=== PATIENT | female | born 1940 | race Caucasian/White ===

== ENCOUNTER 2024-05-15 08:22 | Observation (INO) ==
--- NOTE | 2024-04-01 11:25 | PAT Medication Instructions ---
Medication Instructions Date of Service April 01, 2024 Home Medications albuterol sulfate 90 mcg/actuation aerosol inhaler 2 puff inhalation Q6H PRN amitriptyline 10 mg tablet 10 mg PO HS ascorbic acid (vitamin C) 500 mg tablet (Vitamin C) 500 mg PO QAM calcium carbonate (Calcium 600) 600 mg PO QAM escitalopram oxalate 10 mg tablet 10 mg PO QAM furosemide 20 mg tablet 20 mg PO QAM gabapentin 300 mg capsule 300 - 900 mg PO UD losartan 100 mg tablet 100 mg PO QAM jsaxsqkthikk-ydsvzqnb-urbecd tablet 1 tab PO QAM omeprazole 20 mg tablet,delayed release 20 mg PO QAM simvastatin 40 mg tablet 40 mg PO HS tiotropium 2.5 mcg-olodaterol 2.5 mcg/actuation mist for inhalation (Stiolto Respimat) 2 puff inhalation QAM vitamins A,C,Y-oufv-vmeoii 2,148 mcg-113 mg-45 mg-17.4 mg tablet (PreserVision AREDS) 1 tab PO QAM Continue as directed gabapentin 300 mg capsule 300 - 900 mg PO UD STOP taking 2 weeks before surgery (or as soon as possible if surgery is within 2 weeks) vitamins A,C,M-zvaq-uqwqlg 2,148 mcg-113 mg-45 mg-17.4 mg tablet (PreserVision AREDS) 1 tab PO QAM DO NOT take the morning of surgery ascorbic acid (vitamin C) 500 mg tablet (Vitamin C) 500 mg PO QAM calcium carbonate (Calcium 600) 600 mg PO QAM furosemide 20 mg tablet 20 mg PO QAM losartan 100 mg tablet 100 mg PO QAM extibwvucvev-vdalktlk-nqiqkt tablet 1 tab PO QAM Take morning of surgery With a small sip of water, OTHERWISE NOTHING TO EAT OR DRINK AFTER MIDNIGHT: albuterol sulfate 90 mcg/actuation aerosol inhaler 2 puff inhalation Q6H PRN(use if needed; please bring with you to hospital day of surgery if possible) escitalopram oxalate 10 mg tablet 10 mg PO QAM omeprazole 20 mg tablet,delayed release 20 mg PO QAM tiotropium 2.5 mcg-olodaterol 2.5 mcg/actuation mist for inhalation (Stiolto Respimat) 2 puff inhalation QAM Take evening before surgery albuterol sulfate 90 mcg/actuation aerosol inhaler 2 puff inhalation Q6H PRN(if needed) amitriptyline 10 mg tablet 10 mg PO HS simvastatin 40 mg tablet 40 mg PO HS Other Notes If you have any questions please call us at [phone] or [phone] or [phone] or [phone]
--- NOTE | 2024-04-08 14:01 | Anesthesiology Consultation ---
Date of Service April 08, 2024 Assessment & Plan (1) Encounter for pre-operative examination: - patient states Dr. Lew advised her he plans to contact pain management regarding if she is a candidate for neuraxial anesthesia given her lumbar history. Awaiting response from surgeon's office to confirm this. - awaiting surgeon ordered medical (Dr. Rc Chandra, [facility]) clearance. - determination from Dr. Guido regarding OPJ plan: she advised plan at this time is to await medical clearance and make determination after review of PCP pre-op notation. - neurostimulator device: patient states device is not on/functioning. Chart Review Chart Review: Pending: Refer to Additional Notes / Consult section and Patient seen in Pre Admission Testing Teaching & Discussion Pre-Anesthesia Teaching/Discussion Notes: Instructed NPO after midnight before surgery, except medications with 15 cc of water. Medication instructions provided according to the PAT guidelines. History Surgery Operation Date: 05/15/24 09:15 Proposed Procedures p OP: Right Total Knee Replacement - Jose Manuel Lew MD Height/Weight Height: 5 ft 8 in Weight: 100.8 kg Allergies Allergy/AdvReac Type Severity Reaction Status Date / Time fish oil Allergy "didn't Verified 03/26/24 08:57 agree with me" meloxicam Allergy nausea and Verified 03/26/24 08:57 vomiting Medications Home Medications Medication Instructions Recorded Confirmed Last Taken albuterol sulfate 90 mcg/actuation 2 puff inhalation Q6H PRN SOB 03/26/24 03/26/24 Unknown aerosol inhaler amitriptyline 10 mg tablet 10 mg PO HS 03/26/24 03/26/24 Unknown ascorbic acid (vitamin C) 500 mg 500 mg PO QAM 03/26/24 03/26/24 Unknown tablet (Vitamin C) calcium carbonate (Calcium 600) 600 mg PO QAM 03/26/24 03/26/24 Unknown escitalopram oxalate 10 mg tablet 10 mg PO QAM 03/26/24 03/26/24 Unknown furosemide 20 mg tablet 20 mg PO QAM 03/26/24 03/26/24 Unknown gabapentin 300 mg capsule 300 - 900 mg PO UD 03/26/24 03/26/24 Unknown losartan 100 mg tablet 100 mg PO QAM 03/26/24 03/26/24 Unknown znsmjdumvdjt-emxrpgiv-yjuedf tablet 1 tab PO QAM 03/26/24 03/26/24 Unknown omeprazole 20 mg tablet,delayed 20 mg PO QAM 03/26/24 03/26/24 Unknown release simvastatin 40 mg tablet 40 mg PO HS 03/26/24 03/26/24 Unknown tiotropium 2.5 mcg-olodaterol 2.5 2 puff inhalation QA 03/26/24 03/26/24 Unknown mcg/actuation mist for inhalation (Stiolto Respimat) vitamins A,C,D-umtj-bemdzt 2,148 1 tab PO QAM 03/26/24 03/26/24 Unknown mcg-113 mg-45 mg-17.4 mg tablet (PreserVision AREDS) Past Medical History Medical History (Updated 04/08/24 @ 15:03 by Carmen Bermeo PA-C) AAA (abdominal aortic aneurysm) being monitored by dr. ang, [facility] Anxiety and depression Chronic obstructive pulmonary disease daily and prn inhaler-last albuterol inhaler use over 1 month ago; she notes hypoxia has been reported in the past post-op GERD (gastroesophageal reflux disease) controlled, stable per pt History of skin cancer removed Hx of benign neoplasm of thyroid gland Hyperlipidemia Hypertension controlled, stable per pt Lumbar stenosis with neurogenic claudication f/u pain management Neurostimulator device in situ Thyroid nodule Patient denies h/o stroke, seizures, heart attack, heart failure, DM, blood clots/DVTs or blood transfusions. Exercise / Class Metabolic Activity III < 4 Walking/Shop/Light housework (occasional shortness of breath with usual activities ongoing x several years-denies change or worsening; denies chest discomfort) Past Surgical History Surgical History History of esophagogastroduodenoscopy (EGD) History of laparoscopic appendectomy Hx laparoscopic cholecystectomy Hx of colonoscopy Hx of lumbosacral spine surgery after 2006, [facility] back, chris guzman ~2013, [facility] back, [facility] Past Anesthesia History No Hx of Anesthesia Complications and No Family Hx of Anesthesia Complications History of PONV No Hx of PONV and No Hx of Motion Sickness Social History Smoking Status: Former smoker Do You Dip or Chew Tobacco: No Smoking End Date: 15 years ago Hx Alcohol Use: Yes Alcohol type: wine alcohol intake frequency: holidays/special occasions only Hx Substance Use: No substance use type: does not use Review of Systems Patient denies chest pain, snoring, witnessed apneas, fever, chills, cough, wheezing, or palpitations. Physical Exam Vital Signs Vitals BP 119/83 P 83 TEMP 98.2 SP02 93% on RA RESP 18 Physical Patient resting comfortably in chair in no acute distress, alert and oriented, responding appropriately throughout visit Full cervical extension range of motion without pain TMD 3.5 finger breadths Mallampati Score 3 Dentition: removable partial, denies chipped or loose teeth, caps/crowns, implants or bridges Lungs: normal respiratory effort. Good air movement, clear throughout to auscultation, no adventitious breath sounds Cardiac: regular rate and rhythm, no murmurs noted Carotid arteries: negative bruit bilat Lab Results Anesthesia Preop Results Results Anesthesia Widget: WBC 4.42 K/ul (4.8-10.8) L 04/08/24 Hgb 14.9 g/dl (12.0-16.0) 04/08/24 Hct 46.0 % (37.0-47.0) 04/08/24 Plt 197 K/uL (130-400) 04/08/24 Na 138 mmol/L (136-145) 04/08/24 K 4.1 mmol/L (3.5-5.1) 04/08/24 Cl 101 mmol/L (98-107) 04/08/24 CO2 30 mmol/L (21-32) 04/08/24 BUN 19 mg/dl (6-23) 04/08/24 Creat 0.87 mg/dl (0.6-1.2) 04/08/24 Glucose Level 93 mg/dl (70-99(Fasting)) 04/08/24 PT 10.8 Seconds (9.0-12.0) 04/08/24 PTT 25 Seconds (21-31) 04/08/24 INR 1.0 (0.9-1.1) 04/08/24 Urine Color Yellow 04/08/24 Urine Appearance Cloudy (Clear) A 04/08/24 Urine pH 5.0 (4.5-7.5) 04/08/24 Urine Specific [place] 1.023 (1.000-1.030) 04/08/24 Urine Protein Negative (Negative) 04/08/24 Urine Glucose (UA) Negative (Negative) 04/08/24 Urine Ketones Trace (Negative) H 04/08/24 Urine Blood Negative (Negative) 04/08/24 Urine Nitrite Negative (Negative) 04/08/24 Urine Bilirubin Negative (Negative) 04/08/24 Urine Urobilinogen Negative (Negative) 04/08/24 Urine Leukocyte Esterase Trace (Negative) H 04/08/24 Urine WBC (Auto) 0-5 /hpf (0-5) 04/08/24 Urine RBC (Auto) 0-2 /hpf (0-2) 04/08/24 Urine Hyaline Casts (Auto) 3-5 /lpf (0-2) H 04/08/24 Urine Epithelial Cells (Auto) 0-2 /hpf (0-2) 04/08/24 Urine Bacteria (Auto) None Seen (None Seen) 04/08/24 Blood Type A Positive 04/08/24 Antibody Screen NEGATIVE 04/08/24 Testing Electrocardiogram Date: 04/08/24 NSR, rate 75 bpm Chest X-Ray Date: 04/08/24 Emphysematous change with no active disease in the chest. Stress Test Date: 05/01/18 METS 7 MPHR 86% Severe shortness of breath with exertion Negative for ischemia or infarction
--- NOTE | 2024-05-13 17:18 | History & Physical Report ---
Date of Service May 13, 2024 Assessment & Plan (1) DJD (degenerative joint disease) of knee: Plan: Right instrumented total knee replacement overnight stay per anesthesia likely discharge after 23-hour observation with home health using [facility] History of Present Illness Chief Complaint: Right knee pain Primary Care Provider: NO PCP Patient is an 83-year-old female with a 6-month history of acute right knee pain. Her pain is associated with instability decreased range of motion and pain on all activities of daily living. Radiographically she has evidence of an osteochondral defect on the medial compartment of the knee and bike to tricompartmental degenerative changes with severe patellofemoral disease. She has tried injections which have failed. She requires a cane for all activities of daily living. She does have a history of spine surgery with spinal cord stimulator and therefore was contraindicated for patient-specific total knee. She is admitted for elective knee replacement surgery. Allergies Allergy/AdvReac Type Severity Reaction Status Date / Time fish oil Allergy "didn't Verified 03/26/24 08:57 agree with me" meloxicam Allergy nausea and Verified 03/26/24 08:57 vomiting Home Medications Medication Instructions Recorded Confirmed Type albuterol sulfate 90 mcg/actuation 2 puff inhalation Q6H PRN SOB 03/26/24 03/26/24 History aerosol inhaler amitriptyline 10 mg tablet 10 mg PO 03/26/24 03/26/24 History ascorbic acid (vitamin C) 500 mg 500 mg PO QAM 03/26/24 03/26/24 History tablet (Vitamin C) calcium carbonate (Calcium 600) 600 mg PO QAM 03/26/24 03/26/24 History escitalopram oxalate 10 mg tablet 10 mg PO QAM 03/26/24 03/26/24 History furosemide 20 mg tablet 20 mg PO QAM 03/26/24 03/26/24 History gabapentin 300 mg capsule 300 - 900 mg PO UD 03/26/24 03/26/24 History losartan 100 mg tablet 100 mg PO QA 03/26/24 03/26/24 History gpaoezzsvaef-pbonhewc-pohass tablet 1 tab PO QAM 03/26/24 03/26/24 History omeprazole 20 mg tablet,delayed 20 mg PO QA 03/26/24 03/26/24 History release simvastatin 40 mg tablet 40 mg PO 03/26/24 03/26/24 History tiotropium 2.5 mcg-olodaterol 2.5 2 puff inhalation QAM 03/26/24 03/26/24 History mcg/actuation mist for inhalation (Stiolto Respimat) vitamins A,C,R-pckf-lqkegx 2,148 1 tab PO QAM 03/26/24 03/26/24 History mcg-113 mg-45 mg-17.4 mg tablet (PreserVision AREDS) Past Med/Surg History Problem List (Updated 05/13/24 @ 17:17 by Jose Manuel Lew MD) DJD (degenerative joint disease) of knee Lumbar stenosis with neurogenic claudication (Acute 12/17/13) Medical History AAA (abdominal aortic aneurysm) being monitored by dr. ang, [place] Neurostimulator device in situ Thyroid nodule Hx of benign neoplasm of thyroid gland History of skin cancer removed Anxiety and depression Chronic obstructive pulmonary disease daily and prn inhaler-last albuterol inhaler use over 1 month ago; she notes hypoxia has been reported in the past post-op Lumbar stenosis with neurogenic claudication f/u pain management Hyperlipidemia Hypertension controlled, stable per pt GERD (gastroesophageal reflux disease) controlled, stable per pt Surgical History Hx of lumbosacral spine surgery after 2006, lower back, [facility] ~2013, lower back, [facility] History of laparoscopic appendectomy Hx laparoscopic cholecystectomy History of esophagogastroduodenoscopy (EGD) Hx of colonoscopy Social History Smoking Status: Former smoker Smoking End Date: 15 years ago; Second Hand Exposure: No; Do You Dip or Chew Tobacco: No; Tobacco Cessation Education Requested by Patient: No Hx Alcohol Use: Yes Alcohol type: wine Hx Substance Use: No Preferred Language: Guamanian Communication Ability: Effective Celery Wrapper Required: No Beliefs That Will Affect Care: None Current Living Situation: Family Other Information That Helps Us Care for You: No Feels Safe at Home: Yes Safety Concerns: Feels Safe At This Time Assistive Devices: Denture - Upper Assistive Devices Comment: upper partial denture Review of Systems Review of Systems: Knee pain and instability Physical Exam Physical Exam: Weight 97 kg BMI 33 General: Elderly female who appears her stated age HEENT: NCAT, EOMI, PERRLA Neck: Negative bruits Heart: Regular rate and rhythm no murmurs Lungs: Breath sounds clear and present in all baldwin Abdomen: Soft nontender bowel sounds are positive Extremities: The right knee shows neutral alignment range of motion is 0 to 110 degrees 3 mm medial laxity positive effusion and pain Neurological and vascular: Intact Results & Data Results & Data Vital Signs (Past 12 Hours) Blood pressure 104/78 Pulse 90
[~2024-05-15 08:22] MED LIST: BUPIVACAINE 0.25% PF 30 ML VIAL ONE; BUPIVACAINE 0.5 % 5 MG/1 ML PF 10ML VIAL ONE; DEXAMETHASONE SOD INJ 4 MG/ML VIAL ONE; EPINEPHrine INJ 1 MG/ML AMP ONE; ROPIVACAINE 0.5% 5 MG/ML 30 ML VIAL ONE
[2024-05-15] MEDS: METOCLOPRAMIDE HCL 10 MG TABLET PO SCH (09:03)
[2024-05-15] MEDS: GABAPENTIN 300 MG CAP PO SCH ×2 (09:03→20:32)
[2024-05-15] MEDS: LR 60ML/HR IV SCH (09:03)
[2024-05-15] MEDS: ACETAMINOPHEN 500 MG TAB PO SCH (09:03)
[2024-05-15] MEDS: CeleBREX 200 MG CAP PO SCH ×2 (09:03→20:31)
[2024-05-15] MEDS: FAMOTIDINE 20 MG TAB PO SCH (09:03)
[2024-05-15] MEDS: LR 500ML BOLUS, THEN 15ML/HR IV SCH (09:11)
[2024-05-15] MEDS: dexAMETHasone**PF** 10 MG/ML VIAL IV SCH (09:11)
--- NOTE | 2024-05-15 10:01 | History & Physical Bridge Note ---
Date of Service May 15, 2024 History & Physical Bridge Note I have examined the patient, reviewed the History & Physical and in the interval since the performance of the History & Physical I have noted the following changes of clinical significance: no changes noted
[2024-05-15] MEDS ORDERED: fentaNYL citrate PF 100 MCG/2 ML VIAL ONE (10:03)
[2024-05-15] MEDS ORDERED: MIDAZOLAM HCL 1 MG/ML 2ML VIAL ONE (10:03)
[2024-05-15] MEDS ORDERED: PROPOFOL IV EMULSION 10 MG/ML 20 ML VIAL IV ONE (10:04)
[2024-05-15] MEDS ORDERED: ONDANSETRON INJ 2 MG/ML 2 ML VIAL ONE (10:04)
[2024-05-15] MEDS: TRANEXAMIC ACID 1,000 MG **IV Pre-op IV SCH (12:33)
[2024-05-15] MEDS: ceFAZolin 2000MG 2,000 MG/15 ML SYR IV SCH ×2 (12:50→20:30)
[2024-05-15] MEDS ORDERED: ONDANSETRON INJ 2 MG/ML 2 ML VIAL IV PRN ×2 (12:58→15:19)
[2024-05-15] MEDS ORDERED: ATROPINE SULFATE 0.1 MG/ML 10ML SYR IV PRN (12:58)
[2024-05-15] MEDS ORDERED: PROMETHAZINE HCL 6.25 MG in SODIUM CHLORIDE 0.9% 50 ML IV PRN (12:58)
[2024-05-15] MEDS ORDERED: ePHEDrine sulfate 50 MG/ML AMP IV PRN (12:58)
[2024-05-15] MEDS ORDERED: fentaNYL citrate PF 100 MCG/2 ML VIAL IV PRN (12:58)
[2024-05-15] MEDS: ROPIV 0.5% 246mg, Ketorolac 30mg, EPINEPHrine 0.5mg in NSS INFIL SCH (13:17)
[2024-05-15] MEDS ORDERED: KETOROLAC 30 MG/ML VIAL ONE (13:48)
[2024-05-15] MEDS: TRANEXAMIC ACID 1,000 MG **IV Intra-op IV SCH (13:53)
--- NOTE | 2024-05-15 13:59 | Post Operative Brief Note ---
Immediate Post Op Note Date of Surgery May 15, 2024 Pre & Post Diagnosis Operation Date: 05/15/24 10:30 Pre-Op Diagnosis: Right Knee Osteoarthritis Post-Op Diagnosis: Right Knee Osteoarthritis I identified the patient and participated in the time-out.: Yes Procedure Operation Date: 05/15/24 10:30 Actual Procedures p Right Total Knee Replacement(Right) - Jose Manuel Lew MD Surgeon Jose Manuel Lew MD Temperer Je Randle PACass Estimated Blood Loss 100 Findings Consistent with Post-Op Diagnosis Drains Hemovac Drain
--- NOTE | 2024-05-15 14:12 | Operative Report ---
Post Operative Report Pre & Post Diagnosis Operation Date: 05/15/24 10:30 Pre-Op Diagnosis: Right Knee Osteoarthritis Post-Op Diagnosis: Right Knee Osteoarthritis I identified the patient and participated in the time-out.: Yes Procedure Operation Date: 05/15/24 10:30 Actual Procedures p Right Total Knee Replacement(Right) - Jose Manuel Lew MD Surgeon Jose Manuel Lew MD Batch Plant Operator Je Randle PA-C Estimated Blood Loss 100 Findings Consistent with Post-Op Diagnosis tricompartmental degenerative changes with complete loss of articular cartilage especially in the medial patellofemoral compartments there is chronically inflamed synovial lining. Specimens Bone and cartilage fragments Complications none Indications components used: [employer] Nephew journey 2 posterior stabilized knee system: Femur size 6 with Oxinium coating, tibia size 4 x 9, patella size 35 oval Description of Procedure following satisfactory spinal anesthesia the patient was supine on the operating room table. Right lower extremity was prepared with ChloraPrep and draped sterilely. A surgical timeout was performed. A midline incision was made through a fairly large subcutaneous fat layer. Hemostasis was obtained. A median parapatellar arthrotomy was performed. The knee showed the changes noted above. Attention was first turned to the patella. The patella was freehand cut and sized for a 35 button. This did relax the extensor mechanism and enhanced exposure to the lateral side of the knee. The cruciate ligaments were excised. Using the IM alignment system with a 5 degree valgus cut the distal femur resection was completed. The femur was then sized for a size 6 femoral component and the 4-in-1 block was placed and all cuts were completed. Attention was turned to the tibia. The meniscal fragments were excised. The extramedullary tibial guide was applied. Tibial resection was completed. Soft tissue balancing was completed in flexion and extension. A trial reduction with the above-mentioned components was performed. This showed very good tensioning and stability on the collateral ligaments from full extension to about 115 degrees flexion limited by the size of the patient's leg. The trial components were removed. The capsule was prepared with the orthopedic cocktail. After irrigation and drying the components were cemented using Maxx B CB cement cementing the tibia first, femur second, and patella third. When the cemented hardened the knee was checked and showed similar stability and patellar tracking. The wound was irrigated with 500 cc of experience irrigation. A Hemovac drain was placed. The capsulotomy was closed with interrupted [id number]-pl-kalvd sutures of 1 Vicryl and a running suture of #1 strata fix. Following irrigation the deeper subcutaneous fat layers were closed with 0 strata fix. The patient had an extremely thin dermal layers therefore the skin was closed with surgical shady. A- pressure wound dressing followed by compressive bandage was applied. The patient was returned to her bed and taken to the recovery room having tolerated the procedure in good condition. Note: Je ROJAS was present and assisted throughout due to the complicated nature of this case. He help with preparation and set up, he first aid director throughout. He assisted with hemostasis and exposure throughout the procedure. He also closed the capsular subcutaneous and skin layers and applied the postop dressing. I attest to the content of the Intraoperative Record and any orders documented therein. Any exceptions are noted below.
--- NOTE | 2024-05-15 15:07 | Anesthesiology Progress Note ---
Date of Service May 15, 2024 Anesthesia Post Procedure Vital Signs Vital Signs: Temp Pulse Pulse Resp BP BP Pulse Ox 05/15/24 15:00 36.5 C 78 12 121/72 92 05/15/24 14:50 78 12 123/77 95 05/15/24 14:40 96 H 18 121/80 95 05/15/24 14:30 97 H 17 109/88 93 05/15/24 14:21 36.8 C 98 H 16 99/65 L 93 05/15/24 08:52 05/15/24 08:52 36.4 C L 84 20 174/105 H 194/108 H 93 O2 Del Method O2 Flow Rate 05/15/24 15:00 Nasal Cannula 2 05/15/24 14:50 Nasal Cannula 4 05/15/24 14:40 Oxymask 5 05/15/24 14:30 Oxymask 5 05/15/24 14:21 Oxymask 5 05/15/24 08:52 Room Air 05/15/24 08:52 Room Air Pain Intensity Right Knee: Pain Intensity: 0 Transfer of Care Handoff Completed per policy Notes Mental Status: alert / awake / arousable Patient Amnestic to Procedure: Yes Nausea / Vomiting: adequately controlled Pain: adequately controlled Airway Patency, RR, SpO2: stable & adequate BP & HR: stable & adequate Hydration State: stable & adequate Neuraxial Anesthesia: was administered and sensory block is resolving Anesthetic Complications: no major complications apparent and Pt Satisfied with anesthetic care
[2024-05-15] MEDS: ORTHO JOINT ANESTHETIC ONE (15:18)
[2024-05-15] MEDS ORDERED: NALOXONE HCL 0.4 MG/1 ML VIAL/CARP IV PRN (15:19)
[2024-05-15] MEDS ORDERED: ALBUTEROL HFA 8 GM INHALER INH PRN (15:19)
[2024-05-15] MEDS ORDERED: METOCLOPRAMIDE HCL INJ 5 MG/ML 2 ML VIAL IV PRN (15:19)
[2024-05-15] MEDS ORDERED: MAGNESIUM HYDROXIDE SUSP 30 ML UDC PO PRN (15:19)
[2024-05-15] MEDS ORDERED: bisacodyL 10 MG SUPP PR PRN (15:19)
[2024-05-15] MEDS: SODIUM CHLORIDE 0.9% 1,000 ML IV SCH (15:48)
[2024-05-15] MEDS: SENNA 8.6 MG TAB PO SCH (20:31)
[2024-05-15] MEDS: AMITRIPTYLINE HCL 10 MG TAB PO SCH (20:31)
[2024-05-15] MEDS: DOCUSATE SODIUM 100 MG CAP PO SCH (20:32)
[2024-05-15] MEDS: oxyCODONE HCL IR 5 MG TAB (IMMEDIATE RELEASE) PO PRN (20:32)
[2024-05-15] MEDS: ASPIRIN 81 MG ECTAB PO SCH (20:32)
[2024-05-16] MEDS: ASCORBIC ACID 500 MG TAB PO SCH (07:51)
[2024-05-16] MEDS: CALCIUM CARBONATE 1250MG TAB PO SCH (07:52)
[2024-05-16] MEDS: FUROSEMIDE 20 MG TAB PO SCH (07:53)
[2024-05-16] MEDS: ESCITALOPRAM OXALATE 10 MG TAB PO SCH (07:53)
[2024-05-16] MEDS: MULTIVITAMIN TAB PO SCH (07:54)
[2024-05-16] MEDS: LOSARTAN POTASSIUM 50 MG TAB PO SCH (07:54)
[2024-05-16] MEDS: PANTOprazole 40 MG TAB PO SCH (07:55)
[2024-05-16] MEDS: CEROVITE ADV FORMULA TAB PO SCH (07:55)
[2024-05-16] MEDS: UMECLIDINIUM/VILANTEROL 62.5/25MCG 7 PUFFS/INHALER INH SCH (07:56)
[2024-05-16 08:15] VITALS: PULSE 82; RESP 18; TEMP 97.3
[2024-05-16] MEDS ORDERED: GABAPENTIN 300 MG CAP PO SCH ×2 (09:00→14:00)
--- NOTE | 2024-05-16 09:04 | Orthopedic Progress Note ---
Date of Service May 16, 2024 Assessment & Plan (1) DJD (degenerative joint disease) of knee: Plan: patient is stable status post knee replacement she is cleared for discharge to home as long as physical therapy agrees she will be followed by carlo dubois. We did go over medication protocol use of ice compression. She will follow-up in 2 weeks time Admission and Anticipated Discharge Date Admission Date: May 15, 2024 Subjective postoperative day #1 right total knee replacement Patient is doing very well she reports little or no pain she was ambulatory to the bathroom multiple times with minimal assist. She is tolerating p.o. medicine and is anxious to be discharged to home. She denies shortness of breath or other issues Physical Exam Physical Exam: patient is out of bed seated in a chair. She is awake alert and oriented x 3. Her [place] wrap is clean dry and intact. Her thigh and calf are soft. She is neurologically and vascularly intact has a range of motion of 70 to 80 degrees flexion at the bedside. Hemovac drain has drained about 250 cc total Results & Data Vital Signs (Past 12 Hours) Vital Signs Temp Pulse Resp BP BP Pulse Ox O2 Del Method 05/16/24 08:14 36.3 C L 82 18 152/93 H 91 Room Air 05/16/24 07:37 Nasal Cannula 05/16/24 04:15 36.6 C 86 16 116/62 93 Nasal Cannula 05/15/24 23:26 36.3 C L 81 16 117/68 93 Nasal Cannula O2 Flow Rate 05/16/24 08:14 05/16/24 07:37 2 05/16/24 04:15 2 05/15/24 23:26 3
[2024-05-16 10:50] LABS: Hematocrit (blood only) 42.7 % (37.0-47.0); Hemoglobin 13.8 g/dl (12.0-16.0); Mean Corpuscular Hemoglobin 29.7 pg (25.0-34.0); Mean Corpuscular Hgb Conc 32.3 g/dL (32.0-36.0); Mean Platelet Volume 10.1 fL (9.4-12.4); Platelet Count 244 K/uL (130-400); RDW Coefficient of Variation 12.9 % (11.5-14.5); RDW Standard Deviation 42.7 fL (36.4-46.3); Red Blood Count 4.64 M/uL (4.20-5.40)
[2024-05-16 11:08] LABS: BUN Creatinine Ratio 25.5 (10-20); Calcium 9.4 mg/dl (8.6-10.3); Creatinine Clr Calc Pharmacy 58.9 ml/min; Est GFR (African American) 65.9 ml/min; Est GFR (Non-African American) 56.9 ml/min; Potassium 4.3 mmol/L (3.5-5.1)
[2024-05-16 11:42] VITALS: BP 116/62; O2SAT 90
--- NOTE | 2024-05-21 14:10 | Discharge Summary ---
Date of Service May 21, 2024 Admission HPI Per Admitting Provider Patient is an 83-year-old female with a 6-month history of acute right knee pain. Her pain is associated with instability decreased range of motion and pain on all activities of daily living. Radiographically she has evidence of an osteochondral defect on the medial compartment of the knee and bike to tricompartmental degenerative changes with severe patellofemoral disease. She has tried injections which have failed. She requires a cane for all activities of daily living. She does have a history of spine surgery with spinal cord stimulator and therefore was contraindicated for patient-specific total knee. She is admitted for elective knee replacement surgery. Admission Exam Per Admitting Provider Physical Exam: Weight 97 kg BMI 33 General: Elderly female who appears her stated age HEENT: NCAT, EOMI, PERRLA Neck: Negative bruits Heart: Regular rate and rhythm no murmurs Lungs: Breath sounds clear and present in all baldwin Abdomen: Soft nontender bowel sounds are positive Extremities: The right knee shows neutral alignment range of motion is 0 to 110 degrees 3 mm medial laxity positive effusion and pain Neurological and vascular: Intact Principal Diagnosis Right Knee Osteoarthritis Discharge Data Allergies Allergy/AdvReac Type Severity Reaction Status Date / Time fish oil Allergy "didn't Verified 05/15/24 08:45 agree with me" meloxicam Allergy nausea and Verified 05/15/24 08:45 vomiting Procedures Performed Operation Date: 05/15/24 10:30 Actual Procedures p Right Total Knee Replacement(Right) - Jose Manuel Lew MD Ordered Studies 05/15/24 05:00 US - OR guided needle placemen Routine Hospital Course (1) DJD (degenerative joint disease) of knee: Patient: DINO RENNER Admit Date: 05/15/24 MR#: [id number] Att Phy: Jose Manuel Lew MD Acct ID: [id number] Emily Phy: Negrito Bertrand MD Date: 1940 Fam Phy: Age: 83 Location: 3N Sex: F Room/Bed: N384-2 cc: ~ *NOTICE TO RECEIVING [employer]/AGENCY This information is strictly Confidential and protected under [place] law. [place] law prohibits you from making any further disclosure of this information unless further disclosure is expressly permitted by the written consent of the person to whom it pertains or is authorized by law. A general authorization for the release of medical or other information is not sufficient for this purpose. Hospital accepts no responsibility if the information is made available to any other person, INCLUDING THE PATIENT. Date of Service May 16, 2024 Assessment & Plan (1) DJD (degenerative joint disease) of knee: Plan: patient is stable status post knee replacement she is cleared for discharge to home as long as physical therapy agrees she will be followed by [facility]. We did go over medication protocol use of ice compression. She will follow-up in 2 weeks time Admission and Anticipated Discharge Date Admission Date: May 15, 2024 Subjective postoperative day #1 right total knee replacement Patient is doing very well she reports little or no pain she was ambulatory to the bathroom multiple times with minimal assist. She is tolerating p.o. medicine and is anxious to be discharged to home. She denies shortness of breath or other issues Physical Exam Physical Exam: patient is out of bed seated in a chair. She is awake alert and oriented x 3. Her [place] wrap is clean dry and intact. Her thigh and calf are soft. She is neurologically and vascularly intact has a range of motion of 70 to 80 degrees flexion at the bedside. Hemovac drain has drained about 250 cc total Results & Data Vital Signs (Past 12 Hours) Vital Signs Temp Pulse Resp BP BP Pulse Ox O2 Del Method 05/16/24 08:14 36.3 C L 82 18 152/93 H 91 Room Air 05/16/24 07:37 Nasal Cannula 05/16/24 04:15 36.6 C 86 16 116/62 93 Nasal Cannula 05/15/24 23:26 36.3 C L 81 16 117/68 93 Nasal Cannula O2 Flow Rate 05/16/24 08:14 05/16/24 07:37 2 05/16/24 04:15 2 05/15/24 23:26 3 Signed By: <Electronically signed by Jose Manuel Lew MD> 05/16/24 0905 Created: 05/16/24 0903 The status of this report is Signed. Draft = Not yet reviewed or approved by Medical Physician. Signed = Reviewed and approved by Medical Physician. Total Time Total Time Spent Total Time Spent (In Minutes): 5 Discharge Plan Discharge Items Patient Disposition: Home - Home Health Services Reason For Visit: Right Knee Osteoarthritis Discharge Diagnosis: Right Knee Osteoarthritis Activity: Per Instructions section Non-emergency contact: Surgeon Call non-emergency contact if: you have any medication questions, your pain is not controlled, your temperature is above 101.5, your wound has increased redness and your wound has increased drainage Follow-up/Referrals: [facility] [Outside] (as per surgeon's office) Jose Manuel Lew MD [Surgeon] - (Follow up with Dr. Lew or his PA in 2 weeks from the day of your surgery for your first post operative visit. ) PCP,NO [Physician] - Diet: Regular Addtl Attending Provider Instructions: DR. GLASS POST-OP INSTRUCTIONS FOR TOTAL KNEE ARTHROPLASTY PLEASE REVIEW PRIOR TO SURGERY Day of Surgery You will be admitted and meet the nursing and anesthesia team. Dr. Lew will see you and sign your operative side. Anesthesia will place your spinal anesthetic in the pre-op area Your surgery will be performed and last approximately 1 2 hours. Upon waking, you will notice a dressing and ice pack on your knee. If you purchased the [facility] Cold Compression unit, this will be applied to your knee. You will remain in the recovery room for 1 2 hours, then be transferred to your room in the ambulatory surgical area if you are to go home the same day of your surgery or on the orthopedic floor if you will be staying overnight. Most of Dr. Glass total knee patients go home the same day as surgery. This depends on how well you feel. Patients generally seem to feel better in their own home environment, and the risk of exposure to bad bugs is much lower. (Your post-operative medications will be sent to your pharmacy approximately 1-2 days prior to your procedure) Day 1 post-op (if you have an overnight stay in the hospital) You will have bloodwork drawn in the morning Physical therapy will evaluate you in the morning. You will start getting out of bed and ambulating with a walker. They will instruct you on knee motion exercises. Use your cold packs or your cold compression unit as instructed. This will decrease swelling and minimize pain. convention services director will discuss your discharge plan. Discharge will generally be around 11am Day 1 post-op (all patients) You will be taking Aspirin 81mg twice for 4 weeks to decrease the risk of a blood clot. You will most likely have a drain and MILLIE (superficial wound VAC) dressing post-operatively covered by an bijan wrap dressing. (home nurse will remove bijan wrap/drain) This will keep your incision dry as well as aid in early healing. The batteries will wear out and the VAC will lose suction around day 6 7 post-op. At that time, you may turn off the device and disconnect it from your dressing. You may remove your dressing 10 days after surgery if it becomes bothersome and irritating to your skin. If the dressing appears to be saturated, please call our office. Day 2-14 post-op You will have a home nurse visit to assess your status and remove your bijan wrap/drain on post-op day 2. You are permitted to shower immediately with the VAC. Do not soak the dressing let the shower flow on your opposite side, and pat dry the plastic. Once the dressing has been removed, you may shower normally with the incision exposed. Do not rub the area simply let soapy water run over the incision and lightly pat dry. Therapy will begin on post-op day 3. Your therapy prescription will be sent to your home therapy company/therapist You should continue doing your home exercises Week 2 post-op and forward You will have your first post-op appointment 2 weeks after surgery which should have been scheduled for you by our office. This appointment will be to check your incision, progression of therapy and pain control. You will continue to use a cane or a walker until you feel safe enough to stop using it. You will have a 6-week post-op appointment which should have been scheduled for you by our office. X-rays will be taken to evaluate the prosthesis. You will continue to advance range of motion. By 3 to 4 months after surgery, you should have almost full range of motion and may resume most activities. You may have some pain around the knee with certain activities this is completely normal. You will be scheduled for a 1-year post-op appointment to assess your outcome (sooner if Dr. Lew feels it is necessary). Pain: The immediate post-op period after knee replacement surgery can be painful. You should take your pain medicine as you need it, especially prior to physical therapy and bedtime. Your pain WILL get better, and you may transition to a milder pain medicine (with less side effects, such as Tylenol) as soon as possible. It is common to have pain at night that interferes with sleep this can last for several months. Pain medicines can cause nausea and constipation do not take more than you need. You may be prescribed one or more of the following medications: 1. Celebrex this controls inflammation and makes pain medications more effective it will be taken once or twice a day 2. Tylenol a pain medicine that can help to decrease your pain you should take 1000mg three times a day 3. Tramadol a pain medicine that can be taken every 4-6 hours (instead of Oxycodone) as needed to control your pain 4. Oxycodone a VERY strong pain medicine that can be taken every 4- 6 hours (instead of Tramadol) as needed to control your pain. This medication has the most side effects. 5. Aspirin 81mg blood thinning medication to help minimize the risk of development of blood clots unfortunate side effects of pain medicine include nausea and constipation if you experience these issues or have any questions about your post-op medications, call [facility] at for assistance/advice on how to manage these issues Physical therapy is a VERY important part of knee replacement surgery. The office will arrange for a therapist to come to your home to instruct you on exercises. It is very important to practice on your own (or with the assistance of a family member). While in the hospital, you will be shown a series of home exercises you should perform these exercises 3 4 times daily in addition to physical therapy. After the completion of home therapy (approx. 2 weeks), most therapy exercises can be done on your own. You should get up to walk several times a day. Try not to stand longer than 1 hour at a time to minimize swelling. If you develop swelling, you need to elevate your legs/feet at or above the level of your heart. You may progress from walker to cane to ambulating independently as you feel comfortable. Unless it is an emergency, YOU ARE NOT PERMITTED TO HAVE ANY DENTAL CLEANING/WORK UNTIL 3 MONTHS AFTER SURGERY. You will be required to take an antibiotic prior to any dental cleaning or dental work in order to prevent your joint prothesis from getting infected. This medication is a one time per visit dose to be taken one hour prior to appointment. You may call our office for this prescription or your dentist may be willing to prescribe the medication. Remember to contact [facility] at if you develop any signs of infection which include increased swelling, pain, redness, drainage from incision, warmth, fever, chills or severe pain unrelieved by pain medication. If you develop any chest pain or shortness of breath, you should proceed immediately to the closest Emergency Room. It is normal to run a low-grade fever after surgery. If your fever is consistent at 101.0 or higher, you will need to contact the office. Pending Studies at Discharge: No Stand-Alone Forms: My [facility] Medications and DC Order Prescriptions: Continued simvastatin 40 mg Tablet 40 mg PO HS calcium carbonate [Calcium 600] 600 mg calcium (1,500 mg) Tablet 600 mg PO QAM ascorbic acid (vitamin C) [Vitamin C] 500 mg Tablet 500 mg PO QAM amitriptyline 10 mg Tablet 10 mg PO HS gabapentin 300 mg Capsule 300 - 900 mg PO UD Rx Instructions: 600mg QAM, 300mg QPM, 900mg HS furosemide 20 mg Tablet 20 mg PO QAM albuterol sulfate 90 mcg/actuation Hfa Aerosol Inhaler 2 puff INHALATION Q6H PRN (Reason: SOB) losartan 100 mg Tablet 100 mg PO QAM [id number] Tablet 1 tab PO QAM escitalopram oxalate 10 mg Tablet 10 mg PO QAM omeprazole 20 mg Tablet,Delayed Release (Dr/Ec) 20 mg PO QAM PreserVision AREDS 2,148 mcg-113 mg-45 mg-17.4mg Tablet 1 tab PO QAM Rx Instructions: administer with AM and PM meals Stiolto Respimat 2.5-2.5 mcg/actuation Mist 2 puff INHALATION QAM Admission Data Admit Date/Time: 05/15/24 13:57 Attending Provider: Jose Manuel Lew Admit Provider: Jose Manuel Lew Primary Care Provider: Negrito Bertrand Other Providers: [facility],Home Health Other Interventions: Discharge Summary Assessment (RN) Last Done: 05/16/24 11:39
== END 2024-05-16 12:11 | disposition home health service (06) ==
LOC: 3N 08:22 → ASU 08:22
DX: Z91.013 Allergy to seafood; J44.9 Chronic obstructive pulmonary disease, unspecified; Z87.891 Personal history of nicotine dependence; I71.40 Abdominal aortic aneurysm, without rupture, unspecified; F41.9 Anxiety disorder, unspecified; M17.11 Unilateral primary osteoarthritis, right knee; E78.5 Hyperlipidemia, unspecified; I10 Essential (primary) hypertension; K21.9 Gastro-esophageal reflux disease without esophagitis; Z79.899 Other long term (current) drug therapy; Z85.828 Personal history of other malignant neoplasm of skin; Z88.6 Allergy status to analgesic agent; M65.9 Synovitis and tenosynovitis, unspecified; F32.A Depression, unspecified